=== PATIENT | male | born 2000 | race Two or more races ===

== ENCOUNTER 2024-07-06 01:01 | Emergency (ER) | payer OTHER, SELFPAY ==
[2024-07-06 01:09] VITALS: BP 137/72; PULSE 60; RESP 17; TEMP 36.9; O2SAT 98; BMI 23.6
--- NOTE | 2024-07-06 03:43 | ED_ITS ---
HPI - Skin/Abscess/Foreign Bdy General Chief complaint: Skin/Abscess/Foreign Body Stated complaint: belly button bump slight blood Time Seen by Provider: 07/06/24 03:42 Source: patient Mode of arrival: ambulatory Limitations: no limitations History of Present Illness ED Provider: HPI narrative: Patient comes here with no swelling in the umbilical area for last 2 days which is red and tender Related Data Previous Rx's ?Medication ?Instructions ?Recorded doxycycline hyclate 100 mg tablet 100 mg PO BID #20 tabs 07/06/24 Allergies Allergy/AdvReac Type Severity Reaction Status Date / Time No Known Allergies Allergy Verified 07/06/24 01:11 Review of Systems Review of Systems: Yes all other systems are reviewed and are negative [facility] Social History Social History Advance Directives: No Advance Directives Information Provided: Yes Do you have a plan to hurt others: No Plan Physical Exam Vital Signs: Vital Signs: Last Vital Signs Temp 98.5 F 07/06/24 01:09 Pulse 60 07/06/24 01:09 Resp 17 07/06/24 01:09 BP 137/72 07/06/24 01:09 Pulse Ox 98 07/06/24 01:09 O2 Del Method Room Air 07/06/24 01:09 BMI result Body Mass Index 23.6 Appearance: Alert. Oriented X3. No acute distress. Eyes: no pallor or icterus ENT: Pharynx normal. Oral Mucosa moist Neck: Normal inspection. Neck supple. CVS: Normal heart rate and rhythm. Pulses normal. Respiratory: No respiratory distress. Equal air entry bilateral, Abd: soft, not tender Skin: Skin warm and dry. Small tender area and the umbilical with surrounding cellulitis no abscess Extremities: No lower extremity edema, no calf tenderness Neuro: Oriented X 3. Medications Administered Discontinued Medications Generic Name Dose Route Start Last Admin Trade Name Freq PRN Reason Stop Dose Admin Doxycycline Monohydrate 100 mg 07/06/24 03:46 07/06/24 03:58 Doxycycline Monohydrate 100 Mg Capsule PO 07/06/24 03:47 100 mg ONCE ONE Administration Medical Decision Making Medical Decision Making [facility] Narrative: Patient with cellulitic, indurated area in the umbilicus will prescribe doxycycline no signs of abscess at this time Discharge Plan Discharge Clinical Impression: Cellulitis Patient Disposition: Home, Self-Care Instructions: Cellulitis (ED) Additional Instructions: Local care as advised Take antibiotic as prescribed Report to the PCP/ER if worsening of the swelling Prescriptions: New doxycycline hyclate 100 mg tablet 100 mg PO BID Qty: 20 0RF Print Language: Lithuanian
[2024-07-06] MEDS: Doxycycline Monohydrate 100 MG CAPSULE PO (03:58)
[2024-07-06 04:12] VITALS: BP 107/61; PULSE 54; RESP 16; TEMP 36.8; O2SAT 98
[2024-07-06 04:16] VITALS: BP 107/61; PULSE 54; RESP 16; TEMP 36.8; O2SAT 98
== END 2024-07-06 04:16 | disposition home or self-care (01) ==
PROVIDERS: Emergency Provider Internal Medicine; PCP Internal Medicine
DX: L03.316 Cellulitis of umbilicus (principal)
CPT/HCPCS: 99283